=== PATIENT | male | born 1985 | race Caucasian/White ===

== ENCOUNTER 2016-11-24 11:46 | Emergency (ER) | payer MEDICAID ==
[2016-11-24 12:02] VITALS: BP 198/92; PULSE 60; TEMP 98; BMI 31.4
--- NOTE | 2016-11-24 12:20 | EDPRACDOC ---
- General Information Chief Complaint: Medication Refill Stated Complaint: MED REFILLS Time Seen by Provider: 11/24/16 12:10 Information Source: Patient Mode Of Arrival: Car Home Medications: Home Medications Gabapentin [Neurontin] 800 mg PO TID 07/22/13 Omeprazole 40 mg PO DAILY 07/22/13 Oxycodone Immediate Release [Oxycodone Immediate Release (OxyIR)] 5 mg PO Q6H PRN #15 tab 01/02/16 Oxycodone Immediate Release [Oxycodone Immediate Release (OxyIR)] 10 mg PO TID # 3 days 10/06/16 Tizanidine HCl [Zanaflex] 4 mg PO BID #3 days 10/06/16 Alprazolam 1 mg PO QID 11/24/16 Alprazolam [Xanax] 1 mg PO Q6H PRN #16 tab 11/24/16 Amlodipine [Norvasc] 10 mg PO DAILY 11/24/16 Allergies/Adverse Reactions: Allergies Allergy/AdvReac Type Severity Reaction Status Date / Time tramadol HCl [From Ultram] Allergy Unknown See Verified 11/24/16 12:10 Comments codeine Allergy Anaphylaxis Verified 11/24/16 12:10 * desvenlafaxine succinate Allergy Nausea/Vomi Verified 11/24/16 12:10 [From Pristiq] ting hydrocodone [Hydrocodone] Allergy Hives* Verified 11/24/16 12:10 NSAIDS (Non-Steroidal Allergy Unknown/See Verified 11/24/16 12:10 Anti-Inflamma Comments - History of Present Illness HPI: PT STATES HIM AND HIS BOTH HAD APPT WITH PSYCHIATRIST TODAY AND WHEN THEY ARRIVED WAS TOLD DOCTOR HAD EMERGENCY AND THEY WOULD NOT BE SEEN TODAY. PT STATES OUT OF [place]. Context: Reports: Ran out of Medication Medication for: Reports: Psychiatric Pain: Reports: None ED Past Medical History - History Reviewed Yes Nurses notes reviewed and agree except as marked Travel Outside of [place] in the Last 3 Months?: No - Patient Medical History Cardiac History: Reports: Hypertension, Hypercholesterolemia GI/ History: Reports: Gastroesophageal Reflux Psychological History: Reports: Anxiety. Denies: Depression Additional Past Medical History: Chronic Back Pain - Social Medical History Smoking Status: Heavy tobacco smoker (5 or more cigarettes/day or daily pipe/ cigar) ETOH: None Substance Abuse: None Lives With: Spouse Lives In: Home EDM Review of Systems - Review of Systems ROS Negative Except as Marked: Yes All systems reviewed and were negative except as marked Constitutional: No Symptoms Reported. negative: Fever, Chills, Weakness, Fatigue, Loss of Appetite Eyes: No Symptoms Reported. negative: Redness, Blurred Vision, Double Vision, Discharge, Pain, Light Sensitive, Photophobia Ears: No Symptoms Reported. negative: Pain, Hearing Loss, Drainage, Ear Pulling Throat: No Symptoms Reported. negative: Pain, Swelling Nose: No Symptoms Reported. negative: Congestion, Bleeding, Discharge, Injection, Swelling, Deformity, Ecchymosis, Tender, Abrasion, Laceration Mouth: No Symptoms Reported. negative: Pain, Drooling Respiratory: No Symptoms Reported. negative: Cough, Brassy Cough, Barky Cough, Shortness of Breath, Wheezing, Hemoptysis Cardiovascular: No Symptoms Reported. negative: Chest Pain, Palpitations, Syncope, Edema, Orthopnea, PND, Skin Mottling, Cyanosis Gastrointestinal: No Symptoms Reported. negative: Pain, Constipation, Nausea, Vomiting, Diarrhea, Melena, Formula Intolerance Genitourinary: No Symptoms Reported. negative: Dysuria, Hematuria, Frequency, Discharge, Bleeding, Testicular Pain, Neurological: No Symptoms Reported. negative: Headache, Dizziness, Seizure, Numbness, Weakness, Speech Difficulty, Gait Difficulty Musculoskeletal: No Symptoms Reported. negative: Neck, Chestwall, Ribs, Back, Shoulder, Arm, Elbow, Forearm, Wrist, Hand, Pelvis, Hip, Femur, Knee, Leg, Ankle , Foot Integumentary: No Symptoms Reported. negative: Itching, Rash, Bruising, Wound Allergic/Immunologic: No Symptoms Reported. negative: Hives, Itching Hematologic: No Symptoms Reported. negative: Lymphadenopathy, Easy Bruising, Easy Bleeding Endocrine: No Symptoms Reported. negative: Weight Gain, Weight Loss Psychiatric: No Symptoms Reported. negative: Anxiety, Depression, Hallucinations, Insomnia, Suicidal - Physical Exam Constitutional: Alert (Awake), No apparent distress Oriented to: Time, Person, Place Last recorded Vital Signs: Last Vital Signs Temp 98.0 F 11/24/16 11:59 Pulse 60 11/24/16 11:59 Resp 18 11/24/16 11:59 BP 198/92 H 11/24/16 11:59 Pulse Ox 99 11/24/16 11:59 Oxygen Pulse Oxygen Saturation 99 O2 Device Room Air Oxygen Flow Rate Fraction of Inspired Oxygen ( FIO2) - HEENT Head: Normal ( normocephalic) Eye Exam: Normal (PERRL, EOMI, Sclera white) Oropharynx: Normal (Pharynx:Moist without exudate,Gums-no swelling) Tympanic Membrane: Normal ENT EAC: Normal TMJ: Normal Nose: No Symptoms Reported (septum midline) Neck: Normal (FROM, trachea at midline) - Respiratory/Cardiovascular Respiratory: Normal - CTA (BBS clear to auscultation without adventitious sounds ) Cardiovascular: Normal (RRR without murmur, gallop or rub) - GI Auscultation: Normal (NABS) Palpation: Normal (Soft,No rebound or guarding, non distended) Tenderness: Non tender Astudillo's Sign: Negative - Musculoskeletal Back: Normal (Non-Tender) Extremities: Normal (Normal tone, Pulses 2+ No cyanosis or edema, FROM) - Integumentary Skin: Normal, Warm, Dry Lymphatics: Normal (no adenopathy) - Neurologic Memory Impaired: Normal Motor Function: Normal (Normal tone, Pulses 2+ No cyanosis or edema, FROM) Cranial Nerve: Normal (CN II-X11 intact sensation, strength 5/5) Cerebellar: Normal Mood Description: Normal Perception: Normal - Differential Diagnosis Medication Refill Decision Time to Discharge: 12:20 - Departure Disposition: Home Condition: Stable Final Diagnosis: Medication refill Instructions: Medication Refill Education/Counseling Given To: Patient Education/Counseling Given Regarding: Diagnosis, Treatment, Prognosis, Follow Up Referrals: Fred Mora MD [Primary Care Provider] - One Week Prescriptions: Alprazolam [Xanax] 1 mg PO Q6H PRN #16 tab PRN Reason: Anxiety Forms: Primary / Family Care Contact
== END 2016-11-24 12:24 | disposition home or self-care (01) ==
LOC: ED 11:46 → EDMC 12:24
DX: Z76.0 Encounter for issue of repeat prescription (principal); F41.9 Anxiety disorder, unspecified
CPT/HCPCS: 99283

== ENCOUNTER 2016-11-28 15:35 | Emergency (ER) | payer MEDICAID ==
[2016-11-28 16:51] VITALS: BP 148/90; PULSE 85; TEMP 98.5; BMI 30.5
--- NOTE | 2016-11-28 16:53 | EDPRACDOC ---
- General Information Chief Complaint: Medication Refill Stated Complaint: MED REFILL Time Seen by Provider: 11/28/16 16:45 Home Medications: Home Medications Gabapentin [Neurontin] 800 mg PO TID 07/22/13 Omeprazole 40 mg PO DAILY 07/22/13 Oxycodone Immediate Release [Oxycodone Immediate Release (OxyIR)] 5 mg PO Q6H PRN #15 tab 01/02/16 Oxycodone Immediate Release [Oxycodone Immediate Release (OxyIR)] 10 mg PO TID # 3 days 10/06/16 Tizanidine HCl [Zanaflex] 4 mg PO BID #3 days 10/06/16 Alprazolam 1 mg PO QID 11/24/16 Alprazolam [Xanax] 1 mg PO Q6H PRN #16 tab 11/24/16 Amlodipine [Norvasc] 10 mg PO DAILY 11/24/16 Amlodipine [Norvasc] 10 mg PO DAILY #14 tab 11/28/16 Oxycodone Immediate Release [Oxycodone Immediate Release (OxyIR)] 10 mg PO Q8H PRN #21 tab 11/28/16 Allergies/Adverse Reactions: Allergies Allergy/AdvReac Type Severity Reaction Status Date / Time tramadol HCl [From Ultram] Allergy Unknown See Verified 11/24/16 12:10 Comments codeine Allergy Anaphylaxis Verified 11/24/16 12:10 * desvenlafaxine succinate Allergy Nausea/Vomi Verified 11/24/16 12:10 [From Pristiq] ting hydrocodone [Hydrocodone] Allergy Hives* Verified 11/24/16 12:10 NSAIDS (Non-Steroidal Allergy Unknown/See Verified 11/24/16 12:10 Anti-Inflamma Comments - History of Present Illness Duration Without Medication: TODAY HPI: PT STATES THAT HIS DOCTOR'S OFFICE TOLD HIM TO COME TO THE ED TO GET HIS MEDICATIONS REFILLED BECAUSE HIS DOCTOR HAS HAD A IN THE FAMILY AND WOULD BE OUT OF THE OFFICE THE REST OF THE WEEK. PT DENIES COMPLAINTS STATES HE NEEDS HIS AMLODIPINE 10 MG AND HIS OXYCODONE 10 MG. Context: Reports: Ran out of Medication Medication for: Reports: Hypertension, Pain Pain: Reports: None ED Past Medical History - History Reviewed Yes Nurses notes reviewed and agree except as marked - Patient Medical History Cardiac History: Reports: Hypertension, Hypercholesterolemia GI/ History: Reports: Gastroesophageal Reflux Psychological History: Reports: Anxiety. Denies: Depression Additional Past Medical History: Chronic Back Pain - Social Medical History Smoking Status: Heavy tobacco smoker (5 or more cigarettes/day or daily pipe/ cigar) EDM Review of Systems - Review of Systems Constitutional: negative: Chills, Fever Respiratory: negative: Cough, Shortness of Breath, Wheezing Cardiovascular: negative: Chest Pain, Palpitations Gastrointestinal: negative: Diarrhea, Nausea, Pain, Vomiting Genitourinary: negative: Dysuria, Frequency Neurological: negative: Dizziness, Headache, Numbness, Weakness Musculoskeletal: No Symptoms Reported Integumentary: No Symptoms Reported - Physical Exam Constitutional: Alert (Awake), No apparent distress Oriented to: Time, Person, Place Last recorded Vital Signs: Oxygen Pulse Oxygen Saturation O2 Device Oxygen Flow Rate Fraction of Inspired Oxygen ( FIO2) - HEENT Head: Normal ( normocephalic) - Respiratory/Cardiovascular Respiratory: Normal - CTA (BBS clear to auscultation without adventitious sounds ) Cardiovascular: Normal (RRR without murmur, gallop or rub) - Integumentary Skin: Normal, Warm, Dry Lymphatics: Normal (no adenopathy) - Neurologic Memory Impaired: Normal Motor Function: Normal (Normal tone, Pulses 2+ No cyanosis or edema, FROM) Cranial Nerve: Normal (CN II-X11 intact sensation, strength 5/5) Cerebellar: Normal Mood Description: Normal Perception: Normal - Differential Diagnosis Medication Refill - Additional Information I HAVE CONTACTED DR MORA' OFFICE, HE IS OUT OF THE OFFICE THIS WEEK DUE TO IN FAMILY AND THERE ARE NO PROVIDERS THERE TODAY TO SEE PATIENTS. Decision Time to Discharge: 16:53 - Departure Disposition: Home Condition: Stable Final Diagnosis: Medication refill Instructions: Medication Refill Education/Counseling Given To: Patient Education/Counseling Given Regarding: Diagnosis, Treatment, Prognosis, Follow Up Referrals: Fred Mora MD [Primary Care Provider] - One Week Prescriptions: Amlodipine [Norvasc] 10 mg PO DAILY #14 tab Oxycodone Immediate Release [Oxycodone Immediate Release (OxyIR)] 10 mg PO Q8H PRN #21 tab PRN Reason: Pain Additional Instructions: YOU MUST FOLLOW UP WITH YOUR PRIMARY CARE PROVIDER FOR MEDICATION REFILLS, THE ED DOES NOT REFILL PRESCRIPTIONS FOR CHRONIC PAIN OR ANXIETY.
== END 2016-11-28 16:58 | disposition home or self-care (01) ==
LOC: EDMC 15:35
DX: Z76.0 Encounter for issue of repeat prescription (principal); I10 Essential (primary) hypertension; G89.29 Other chronic pain; M54.9 Dorsalgia, unspecified; F41.9 Anxiety disorder, unspecified
CPT/HCPCS: 99282